=== PATIENT | female | born 1950 | race Caucasian/White ===

== ENCOUNTER 2021-12-26 12:27 | Emergency (ER) | payer MEDICARE, OTHER ==
[~2021-12-26] VITALS: Ht 157.5 cm; Wt 81.6 kg
--- NOTE | 2021-12-26 12:35 | NUR ---
BIB RA C/O bilateral hand hives (acute) - noted last night. anxiety reported by the paramedics. PLACED ON BED, AAOX4, BREATHING EVEN AND UNLABORED.
--- NOTE | 2021-12-26 12:40 | NUR ---
AT BED SIDE
[2021-12-26] MEDS ORDERED: IBUPROFEN 400 MG TABLET ONE (13:03)
[2021-12-26] MEDS ORDERED: diphenhydrAMINE HCL 50 MG CAPSULE ONE (13:03)
[2021-12-26] MEDS: IBUPROFEN 400 MG TABLET PO ONE (13:05)
[2021-12-26] MEDS: diphenhydrAMINE HCL 25 MG CAPSULE PO ONE (13:05)
[2021-12-26] MEDS ORDERED: predniSONE 20 MG TABLET ONE (13:11)
[2021-12-26] MEDS: predniSONE 50 MG TABLET PO ONE ×2 (13:12→13:30)
[2021-12-26 13:19] LABS: BASOPHILS % (AUTO) 0.3 % (0.0-2.0); EOSINOPHILS % (AUTO) 0.8 % (0.0-6.0); HEMATOCRIT 34 % (33-45); HEMOGLOBIN 11.5 g/dL (11.5-14.8); LYMPHOCYTES # (AUTO) 1.8 K/uL (0.8-4.8); LYMPHOCYTES % (AUTO) 25.3 % (20.0-44.0); MEAN CORPUSCULAR HGB CONC 34 g/dl (31.0-36.0); MEAN CORPUSCULAR VOLUME 86 fL (82-100); MONOCYTES # (AUTO) 0.5 K/uL (0.1-1.30); MONOCYTES % (AUTO) 7.5 % (2.0-12.0); NEUTROPHILS # (AUTO) 4.7 K/uL (1.8-8.9); NEUTROPHILS % (AUTO) 66.1 % (43.0-81.0); PLATELET COUNT (AUTO) 304 K/uL (150-450); RED BLOOD CELL COUNT(AUTO) 3.98 MIL/uL (4.0-5.2); WHITE BLOOD COUNT (AUTO) 7.1 K/uL (4.3-11.0)
[2021-12-26 13:28] LABS: CALCIUM, SERUM 9.2 mg/dL (8.5-10.1); CREATININE 1.3 mg/dL (0.6-1.3); POTASSIUM 4.1 mmol/L (3.5-5.1)
--- NOTE | 2021-12-26 13:35 | NUR ---
Patient discharged to home in stable condition. Written and verbal after care instructions given. Patient verbalizes understanding of instruction.
[2021-12-26 13:42] LABS: THYROID STIMULATING HORMONE 1.432 uIU/mL (0.358-3.74)
[2021-12-26 13:50] LABS: C-REACTIVE PROTEIN 2.6 mg/dL (0.0-0.9)
[2021-12-26] MEDS ORDERED: CLOB15OI3 TP ×2 (14:02→14:23)
--- NOTE | 2021-12-26 14:38 | NUR ---
Patient discharged to home in stable condition. Written and verbal after care instructions given. Patient verbalizes understanding of instruction.
[2021-12-26 14:43] VITALS: BP 120/65
== END 2021-12-26 14:35 | disposition home or self-care (01) ==
LOC: ER 12:30
DX: L28.1 Prurigo nodularis (principal); I10 Essential (primary) hypertension; Z79.899 Other long term (current) drug therapy
CPT/HCPCS: 99284; 85025; 80048; 85652; 36415; 84439; 84443; 86140; Q0163; J7512